=== PATIENT | female | born 1935 | race Two or more races ===

== ENCOUNTER 2021-06-13 12:58 | Emergency (ER) | payer MEDICARE, OTHER ==
[~2021-06-13] VITALS: Ht 167.6 cm; Wt 72.6 kg
[2021-06-13 12:58] VITALS: BP 0/0
== END 2021-06-13 18:30 ==
LOC: EDBD 12:58 → ER 12:58
DX: I46.9 Cardiac arrest, cause unspecified (principal); J96.90 Respiratory failure, unspecified, unspecified whether with hypoxia or hypercapnia; R41.82 Altered mental status, unspecified; Z86.73 Personal history of transient ischemic attack (TIA), and cerebral infarction without residual deficits
CPT/HCPCS: 31500; 92950